=== PATIENT | female | born 1955 | race Caucasian/White ===

== ENCOUNTER 2024-11-20 19:20 | Inpatient (IN) | payer MEDICARE, OTHER ==
[~2024-11-20] VITALS: Ht 162.6 cm; Wt 72.1 kg
[2024-11-20 19:49] LABS: PLATELET COUNT (AUTO) 195 K/uL (179-408); RED BLOOD CELL COUNT(AUTO) 4.61 MIL/uL (3.63-4.92); RED CELL DISTRIBUTION WIDTH 13.6 % (12.3-17.7); WHITE BLOOD COUNT (AUTO) 8.3 K/uL (3.8-11.8)
[2024-11-20 20:03] LABS: CREATININE 0.8 mg/dL (0.6-1.3); SODIUM SERUM 138 mmol/L (136-145); UREA NITROGEN, BLOOD 19 mg/dL (7-18)
[2024-11-20] MEDS ORDERED: ACET-3117 PO (20:03)
[2024-11-20] MEDS ORDERED: MELA5TAB20 PO (20:03)
[2024-11-20] MEDS ORDERED: QUET50TA PO (20:03)
[2024-11-20] MEDS ORDERED: CRAN450T9 PO (20:03)
[2024-11-20] MEDS ORDERED: PANT40TA49 PO (20:03)
[2024-11-20] MEDS ORDERED: GABA300C PO (20:03)
[2024-11-20] MEDS ORDERED: ATOR10TA PO (20:03)
[2024-11-20] MEDS ORDERED: METO25TA6 PO (20:03)
[2024-11-20 20:07] LABS: ETHANOL < 3 MG/DL (0-10)
[2024-11-20 20:09] LABS: ASPARTATE AMINOTRANSFERASE 21 U/L (15-37); TOTAL PROTEIN, SERUM 7.0 g/dL (6.4-8.2)
[2024-11-20 20:22] VITALS: BP 45/69
[2024-11-20] MEDS ORDERED: ATORVASTATIN 20 MG TABLET ONE (21:46)
[2024-11-20] MEDS: ATORVASTATIN 10 MG TABLET PO SCH (21:48)
[2024-11-21] MEDS ORDERED: TEMAZEPAM 7.5 MG CAPSULE PO PRN (03:15)
[2024-11-21] MEDS ORDERED: MAGNESIUM HYDROXIDE 30 ML LIQUID UDC PO PRN (03:15)
[2024-11-21] MEDS ORDERED: MAG HYDROX/AL HYDROX/SIMETH 30 ML LIQUID UDC PO PRN (03:15)
[2024-11-21 03:20] VITALS: BP 123/64; TEMP 97.8; O2SAT 95
[2024-11-21] MEDS: LORAZEPAM 1 MG TABLET PO PRN ×2 (03:34→19:38)
[2024-11-21] MEDS: BLOOD SUGAR DIAGNOSTIC 1 EACH STRIP VI ONE (03:34)
[2024-11-21 03:56] LABS: *BILIRUBIN,URIN NEGATIVE (NEGATIVE); *BLOOD, URINE NEGATIVE (NEGATIVE); *CLARITY,URINE CLEAR (CLEAR); *KETONES,URINE NEGATIVE (NEGATIVE); *PROTEIN,URINE NEGATIVE (NEGATIVE); *UROBILINOGEN,URINE 0.2 E.U./dl (NORMAL); LEUKOCYTE ESTERASE ,URINE 1+ (NEGATIVE); NITRITE, URINE NEGATIVE (NEGATIVE); UGLUCOSE NEGATIVE (NEGATIVE)
[2024-11-21 03:57] LABS: *COLOR,URINE LIGHT YELLOW (YELLOW)
[2024-11-21 04:03] LABS: SQUAMOUS EPITHELIAL CELL,UR FEW /HPF (NONE SEEN)
[2024-11-21 04:08] LABS: *AMPHETAMINE, URINE NEGATIVE (NEGATIVE); *BARBITURATE, URINE NEGATIVE (NEGATIVE); *BENZODIAZEPINE, URINE NEGATIVE (NEGATIVE); *CANNABINOID, URINE NEGATIVE (NEGATIVE); *COCCAINE, URINE NEGATIVE (NEGATIVE); *OPIATE, URINE NEGATIVE (NEGATIVE); *PHENCYCLIDINE SCREEN,URINE NEGATIVE (NEGATIVE); FENTANYL, URINE NEGATIVE (NEGATIVE)
[2024-11-21 08:21] VITALS: BP 152/65; TEMP 97.8; O2SAT 97
[2024-11-21] MEDS ORDERED: Medication Not On Formulary EA (Cranberry Fruit (Cranberry) 450 MG) PO SCH (09:00)
[2024-11-21] MEDS: GABAPENTIN 300 MG CAPSULE PO SCH (12:04)
[2024-11-21] MEDS: METOPROLOL TARTRATE 25 MG TABLET PO SCH (12:04)
[2024-11-21] MEDS: NITROFURANTOIN/NITROFURAN MAC 100 MG CAPSULE PO SCH (12:05)
[2024-11-21] MEDS: PANTOPRAZOLE SODIUM 40 MG TABLET.DR PO SCH (12:05)
[2024-11-21 16:09] VITALS: BP 156/69; TEMP 98.1; O2SAT 96
[2024-11-21 20:00] VITALS: BP 144/84; TEMP 97.6; O2SAT 94
[2024-11-21] MEDS: TRAZODONE 50 MG TABLET PO SCH (20:40)
[2024-11-22 08:16] VITALS: BP 167/78; TEMP 98; O2SAT 98
[2024-11-22 15:06] VITALS: BP 139/47; TEMP 98; O2SAT 94
[2024-11-22 20:00] VITALS: BP 134/51; TEMP 98.1; O2SAT 94
[2024-11-23 09:44] VITALS: BP 147/61; TEMP 98.2; O2SAT 96
[2024-11-23 15:38] VITALS: BP 111/42; TEMP 98; O2SAT 96
[2024-11-23 20:00] VITALS: BP 139/58; TEMP 97.4; O2SAT 97
[2024-11-24 08:20] VITALS: BP 125/71; TEMP 98; O2SAT 96
[2024-11-24 16:45] VITALS: BP 120/68; TEMP 98; O2SAT 96
[2024-11-24 20:00] VITALS: BP 120/57; TEMP 98; O2SAT 94
[2024-11-25 08:18] VITALS: BP 139/68; TEMP 98; O2SAT 96
[2024-11-25 16:10] VITALS: BP 131/68; TEMP 98; O2SAT 96
[2024-11-25 20:01] VITALS: BP 129/55; TEMP 97.9; O2SAT 98
[2024-11-26 08:59] VITALS: BP 153/78; TEMP 98; O2SAT 96
[2024-11-26 16:21] VITALS: BP 138/60; TEMP 98; O2SAT 96
[2024-11-26 20:05] VITALS: BP 150/64; TEMP 98.1; O2SAT 99
[2024-11-27 08:42] VITALS: BP 166/86; TEMP 98.2; O2SAT 95
[2024-11-27] MEDS: ENSURE ENLIVE (VAN) 240 ML LIQUID PO SCH (09:07)
[2024-11-27 15:52] VITALS: BP 157/73; TEMP 98.3; O2SAT 97
[2024-11-27 17:00] VITALS: BP 138/66; O2SAT 95
[2024-11-27] MEDS: TRAZODONE 100 MG TABLET PO SCH (20:05)
[2024-11-28 09:43] VITALS: BP 125/64; TEMP 98.2; O2SAT 98
[2024-11-28 15:46] VITALS: BP 126/60; TEMP 98.2; O2SAT 98
[2024-11-28 20:00] VITALS: BP 126/101; TEMP 98.7; O2SAT 95
[2024-11-29 07:45] VITALS: BP 123/69; TEMP 98; O2SAT 98
[2024-11-29 15:47] VITALS: BP 104/60; TEMP 98.2; O2SAT 98
[2024-11-29 20:00] VITALS: BP 129/70; TEMP 98.7; O2SAT 95
[2024-11-30] MEDS: TEMAZEPAM 15 MG CAPSULE PO PRN (02:04)
[2024-11-30 08:12] VITALS: BP 162/68; TEMP 98.2; O2SAT 98
[2024-11-30 15:33] VITALS: BP 117/67; TEMP 98; O2SAT 98
[2024-11-30 20:00] VITALS: BP 125/69; TEMP 98.3; O2SAT 93
[2024-12-01 08:10] VITALS: BP 142/56; TEMP 98; O2SAT 98
[2024-12-01 16:46] VITALS: BP 135/58; TEMP 98; O2SAT 98
[2024-12-01 20:00] VITALS: BP 130/60; TEMP 98.1; O2SAT 95
[2024-12-02 08:18] VITALS: BP 136/72; TEMP 98; O2SAT 98
[2024-12-02 16:39] VITALS: BP 110/68; TEMP 98; O2SAT 98
[2024-12-02 20:00] VITALS: BP 106/59; TEMP 98.1; O2SAT 97
[2024-12-03] MEDS: ACETAMINOPHEN 325 MG TABLET PO PRN (03:57)
[2024-12-03 08:08] VITALS: BP 131/61; TEMP 98; O2SAT 98
[2024-12-03 08:13] VITALS: BP 131/61
== END 2024-12-03 11:30 | DRG 885 ==
LOC: ER 20:09 → GPS 11-21 02:00
PROVIDERS: ADMIT Psychiatry & Neurology Psychiatry; ATTEND Internal Medicine
DX: F29 Unspecified psychosis not due to a substance or known physiological condition (principal); F02.811 Dementia in other diseases classified elsewhere, unspecified severity, with agitation; N39.0 Urinary tract infection, site not specified; F02.82 Dementia in other diseases classified elsewhere, unspecified severity, with psychotic disturbance; F02.84 Dementia in other diseases classified elsewhere, unspecified severity, with anxiety; G30.9 Alzheimer's disease, unspecified; E78.5 Hyperlipidemia, unspecified; I10 Essential (primary) hypertension; G60.9 Hereditary and idiopathic neuropathy, unspecified; Z79.899 Other long term (current) drug therapy; M62.50 Muscle wasting and atrophy, not elsewhere classified, unspecified site; K21.9 Gastro-esophageal reflux disease without esophagitis; R13.10 Dysphagia, unspecified
CPT/HCPCS: 36415; 84443; 85025; 87086; 93005; G0480